=== PATIENT | female | born 1995 | race Asian ===

== ENCOUNTER 2021-12-30 01:09 | Emergency (ER) | payer SELFPAY ==
[~2021-12-30] VITALS: Ht 157.5 cm; Wt 54.0 kg
[2021-12-30] MEDS ORDERED: ONDANSETRON HCL 4MG/2ML INJ IV STA (02:13)
[2021-12-30] MEDS ORDERED: SODIUM CHLORIDE 0.9% 1,000 ML IV ONE (02:15)
[2021-12-30 03:20] LABS: CHLORIDE 108 mEq/L (98-107)
[2021-12-30 03:32] LABS: BASOPHILS % 0.2 % (0.0-2.0); EOSINOPHILS % 0.6 % (0.0-5.0); HEMATOCRIT. 35.5 % (36.0-48.0); HEMOGLOBIN. 11.8 g/dL (12.0-16.0); LYMPHOCYTES % 17.4 % (20.0-50.0); MEAN CORPUSCULAR VOLUME 83.8 fL (81.0-99.0); MEAN PLATELET VOLUME 9.3 fl (7.4-10.4); MONOCYTES % 5.7 % (2.0-8.0); NEUTROPHILS % 76.1 % (40.0-76.0); PLATELET 227 x1000/uL (130-400); RED BLOOD CELL COUNT 4.23 mill/uL (4.2-5.4)
[2021-12-30] MEDS ORDERED: ONDA4TAB5 MT (04:46)
[2021-12-30 05:01] VITALS: BP 110/59
== END 2021-12-30 05:05 | disposition home or self-care (01) ==
LOC: ER 01:09
DX: F12.129 Cannabis abuse with intoxication, unspecified (principal)
CPT/HCPCS: 36415; 80053; 85025; 96361; 96374; 99283; J2405; J7030